=== PATIENT | female | born 1955 | race Caucasian/White ===

== ENCOUNTER → 2017-03-25 | Outpatient (CLI) | payer OTHER ==
--- NOTE | ~2017-03-25 | CT98 ---
[facility] A Service of [facility] RADIOLOGY TEXT RESULTS PATIENT: HAZEL ARRIETA LOCATION: [facility] : 51 UNIT #: [id number] AGE: [address]: Long Mckoy MD SEX: F ORDER DR: [id number] [facility] [address] [place], [place] [address] [id number] O MR#: [id number] Acc #: [id number] NAME: HAZEL ARRIETA : 1955 SEX: F STUDY DATE/TIME: 03/25/2017 12:47 UNIT: [facility]AT ROOM: STUDY DESCRIPTION: CT Lumbar Spine Wo Cont Attending Physician: Long Mckoy M.D. Referring Physician: Long Mckoy M.D. Ordering Physician: Long Mckoy M.D. Primary Care Physician: Razia Courtney M.D. MEDICAL IMAGING REPORT This report is preliminary unless electronic signature is present EXAM Lumbar spine CT no contrast DATE OF STUDY 03/25/2017 PROCEDURE Axial unenhanced lumbar CT with multiplanar reformats. This CT exam was performed with one or more of the following radiation dose reduction techniques: automatic exposure control, adjustment of mA and/or kV according to patient size, and iterative reconstruction. CLINICAL HISTORY 5 year history of leg weakness. COMPARISON STUDIES Lumbar spine MRI from an outside facility dated 06/04/2016. FINDINGS There has been fusion at L4-5. There are bilateral pedicle screws at 4 and 5 and posterior bone graft material as well as a disc prosthesis. Slight 4-5 grade 1 anterolisthesis is unchanged since the preoperative MRI. The paraspinous soft tissues are unremarkable. At 1-2 there is no canal stenosis and minimal bilateral foraminal narrowing. At 2-3 there is perhaps mild degenerative canal stenosis and borderline to mild bilateral foraminal narrowing. [facility] A Service of [facility] RADIOLOGY TEXT RESULTS PATIENT: HAZEL ARRIETA LOCATION: [facility] : 51 UNIT #: [id number] AGE: [address]: Long Mckoy MD SEX: F ORDER DR: At 3-4 there is moderate canal stenosis. There is a left posterolateral disc protrusion. There is moderate left foraminal stenosis and minimal right foraminal narrowing. At 4-5 there is metallic streak artifact and canal stenosis and foraminal stenosis are difficult to pelletizer though there is minimal, if any, right bony foraminal narrowing but there may be moderate bony left foraminal narrowing but, again, streak artifact limits assessment. At 5-1 there is mild or mild to moderate degenerative canal stenosis. The right foramen shows minimal narrowing. There is probably mild to moderate or moderate left foraminal narrowing though, again, assessment is limited. IMPRESSION Status post fusion at 4-5. There is no evidence of device fracture or failure. There is posterior bone graft material as yet incompletely incorporated. There is slight lucency around the distal most aspect of the left L5 screw and around the most proximal aspect of the right L4 screw though no definite or convincing evidence of loosening is seen. Dictated by... Gigi Falcon M.D. THIS IS AN ELECTRONICALLY VERIFIED REPORT Gigi Falcon M.D. at 03/30/2017 3:26 PM ANN MARIE/hudson TD: 03/25/2017 16:55 JOB #: [id number] MEDICAL IMAGING REPORT Page 1 of 1 COPY
== END | disposition home or self-care (01) ==
LOC: CCAT 12:18
DX: M54.9 Dorsalgia, unspecified (principal); Z98.1 Arthrodesis status; Z98.890 Other specified postprocedural states
CPT/HCPCS: 72131